=== PATIENT | male | born 1955 | race Caucasian/White ===

== ENCOUNTER 2018-02-09 08:55 | Inpatient (IN) | payer BC, MEDICAID, OTHER ==
[2018-02-09] VITALS (12 sets, daily range): BP systolic 97–134; BP diastolic 60–78
[~2018-02-09] VITALS: Ht 188 cm; Wt 104.4 kg
[2018-02-09] MEDS ORDERED: methylPREDNISolone sod succ 1000mg vial ONE (09:00)
[2018-02-09] MEDS ORDERED: aminocaproic acid 250 MG/1 ML inj. ONE (09:00)
[2018-02-09] MEDS ORDERED: magnesium sulf 1 GM/2 ML ONE (09:00)
[2018-02-09] MEDS ORDERED: phenylephrine 10mg/ml inj. ONE (09:00)
[2018-02-09] MEDS ORDERED: albumin (human) 25% 100 ML IV solution IV ONE (09:00)
[2018-02-09] MEDS ORDERED: heparin 1,000 units/ml 10ml inj ONE (09:00)
[2018-02-09] MEDS ORDERED: potassium Cl 2 mEq/ml inj IV ONE (09:00)
[2018-02-09] MEDS ORDERED: heparin 10,000 units/1 ML INJ ONE (09:00)
[2018-02-09] MEDS ORDERED: sodium bicarbonate (8.4%) 1 mEq/ml syringe ONE (09:00)
[2018-02-09] MEDS ORDERED: calcium chloride 100 MG/1 ML inj IV ONE (09:00)
[2018-02-09] MEDS ORDERED: ceFAZolin 1GM/D5W- ADD-VANTAGE 50 ML IV STA (10:12)
[2018-02-09] MEDS ORDERED: vancomycin/NS 1 GM ADD-VANTAGE 250 ML IV STA (10:12)
[2018-02-09 10:15] LABS: BASOPHILS % (AUTO) 0.3 % (0-1); EOSINOPHILS # (AUTO) 0.2 X10'3 (0-0.9); EOSINOPHILS % (AUTO) 1.2 % (0-6); HEMATOCRIT 44.7 % (42.0-52.0); HEMOGLOBIN 15.2 g/dl (14.0-17.9); LYMPHOCYTES # (AUTO) 0.8 X10'3 (1.1-4.8); LYMPHOCYTES % (AUTO) 5.5 % (21-51); MEAN CORPUSCULAR HEMOGLOBIN 32.6 PG (27.0-31.0); MEAN CORPUSCULAR VOLUME 95.8 FL (78-98); MEAN PLATELET VOLUME 9.3 FL (7.4-10.4); MONOCYTES # (AUTO) 0.9 X10'3 (0-0.9); MONOCYTES % (AUTO) 6.2 % (2-12); NEUTROPHILS # (AUTO) 12.1 X10'3 (1.8-7.7); NEUTROPHILS % (AUTO) 86.8 % (42-75); PLATELET COUNT 255 X10'3 (140-440); RED BLOOD COUNT 4.66 X10'6 (4.70-6.10); RED CELL DISTRIBUTION WIDTH 13.3 % (11.5-14.5)
[2018-02-09] MEDS ORDERED: ringers solution, lacted 1,000 ML IV ONE (10:27)
[2018-02-09 10:30] LABS: ALANINE AMINOTRANSFERASE 89 U/L (12-78); ALBUMIN 3.5 G/DL (3.4-5.0); ALBUMIN/GLOBULIN RATIO 1.2 (1.1-1.5); ALKALINE PHOSPHATASE 83 IU/L (46-116); ANION GAP 11 (8-16); ASPARTATE AMINO TRANSFERASE 61 U/L (10-37); BILIRUBIN,TOTAL 0.8 MG/DL (0.1-1.0); BLOOD UREA NITROGEN 17 MG/DL (7-18); BUN/CREATININE RATIO 10.6 (5.4-32.0); CALCIUM 8.1 MG/DL (8.5-10.1); CHLORIDE 109 MMOL/L (99-107); GLUCOSE 125 MG/DL (70-104); SODIUM 141 MMOL/L (135-145); TOTAL CARBON DIOXIDE 21.1 MMOL/L (24-32); TOTAL PROTEIN 6.4 G/DL (6.4-8.2); eGFR 44 ML/MIN
[2018-02-09] MEDS ORDERED: LORazepam 2 mg/ml vial IM ONE (10:30)
[2018-02-09] MEDS ORDERED: famotidine/PF 10 mg/ml inj IV ONE (10:30)
[2018-02-09] MEDS ORDERED: NORepinephrine bitartrate 8 MG in NS 250 ML BAG (32 mcg/ml) IV ONE (10:32)
[2018-02-09] MEDS ORDERED: niCARDipine in NS 40mg/200ml (0.2mg/ml) IVPB IV ONE (10:32)
[2018-02-09] MEDS ORDERED: rocuronium 10mg/ml inj IV ONE ×2 (10:32→10:42)
[2018-02-09] MEDS ORDERED: protamine sulf. 10mg/ml inj. IV ONE (10:32)
[2018-02-09] MEDS ORDERED: isoflurane 100ml inhalation liquid IH ONE (10:32)
[2018-02-09] MEDS ORDERED: INSULIN R 100 UNIT in NS 100ML (1 UNIT/1 ML) BAG IV ONE (10:32)
[2018-02-09 10:33] LABS: POTASSIUM 5.1 MMOL/L (3.5-5.1)
[2018-02-09] MEDS ORDERED: SUFENTANIL CITRATE 50 MCG/ML 2ml ampule IV ONE (10:38)
[2018-02-09] MEDS ORDERED: LORazepam 2 mg/ml vial ONE (10:41)
[2018-02-09] MEDS ORDERED: propofol inj 20 ML IV ONE ×2 (10:42→12:05)
[2018-02-09] MEDS: insulin regular, human 100 UNIT in normal saline 100ml IV soln 99 ML IV SCH ×4 (10:50→21:20)
[2018-02-09] MEDS ORDERED: pancuronium br 1mg/ml inj IV ONE (11:54)
[2018-02-09 11:56] LABS: ABG BASE EXCESS -9.8 mmol/L (-2.0-3.0); ABG HCO3 15.9 mmol/L (22.0-26.0); ABG OXYGEN SATURATION 93.5 % (95-98); ABG PCO2 34.5 mmHg (35.0-45.0); ABG PH 7.281 (7.350-7.450); ABG PO2 69.5 mmHg (60.0-100.0); CL (ABG) 116 mmol/L (99-107); FCOHb 0.8 % (0.5-1.5); FMetHb 0.2 % (0.3-1.12); FO2Hb 92.6 % (94-100); GLUCOSE (ABG) 124 mg/dl (70-105); IONIZED CA (ABG) 1.14 mmol/L (1.03-1.32); K (ABG) 4.8 mmol/L (3.3-5.1); NA (ABG) 136 mmol/L (135-145); TOTAL HEMOGLOBIN 14.2 G/dl (14.0-18.0)
[2018-02-09] MEDS ORDERED: sodium bicarbonate 1 MEQ/1 ml inj ONE ×2 (11:59)
[2018-02-09 12:21] LABS: ABG BASE EXCESS -5.2 mmol/L (-2.0-3.0); ABG HCO3 19.8 mmol/L (22.0-26.0); ABG PCO2 36.9 mmHg (35.0-45.0); ABG PH 7.347 (7.350-7.450); ABG PO2 204.5 mmHg (60.0-100.0); CL (ABG) 114 mmol/L (99-107); FCOHb 0.4 % (0.5-1.5); FMetHb 0.3 % (0.3-1.12); FO2Hb 98.3 % (94-100); GLUCOSE (ABG) 132 mg/dl (70-105); IONIZED CA (ABG) 1.06 mmol/L (1.03-1.32); K (ABG) 5.5 mmol/L (3.3-5.1); NA (ABG) 135 mmol/L (135-145); TOTAL HEMOGLOBIN 13.4 G/dl (14.0-18.0)
[2018-02-09 12:25] LABS: ACT @ 1.70 U 256 SEC (193-297); ACT @ 2.84 U 371 SEC (260-420); BASELINE ACT 134 SEC (101-148)
[2018-02-09 13:06] LABS: ABG BASE EXCESS -5.2 mmol/L (-2.0-3.0); ABG HCO3 19.7 mmol/L (22.0-26.0); ABG OXYGEN SATURATION 98.5 % (95-98); ABG PCO2 35.6 mmHg (35.0-45.0); CL (ABG) 112 mmol/L (99-107); FCOHb 0.3 % (0.5-1.5); FMetHb 0.2 % (0.3-1.12); GLUCOSE (ABG) 119 mg/dl (70-105); IONIZED CA (ABG) 1.03 mmol/L (1.03-1.32); NA (ABG) 135 mmol/L (135-145); TOTAL HEMOGLOBIN 10.2 G/dl (14.0-18.0)
[2018-02-09 13:21] LABS: ABG BASE EXCESS VENOUS -2.3 mmol/L; ABG HCO3 VENOUS 23.4 mmol/L; ABG PCO2 VENOUS 44.1 mmHg; ABG PO2 VENOUS 50.3 mmHg; CL (ABG) 113 mmol/L (99-107); FCOHb VENOUS 0.3 %; FHHb VENOUS 15.4 %; FMetHb VENOUS 0.2 %; FO2Hb VENOUS 84.1 %; GLUCOSE (ABG) 131 mg/dl (70-105); IONIZED CA (ABG) 1.02 mmol/L (1.03-1.32); NA (ABG) 137 mmol/L (135-145); TOTAL HEMOGLOBIN 10.5 G/dl (14.0-18.0)
[2018-02-09 13:51] LABS: ABG BASE EXCESS -4.7 mmol/L (-2.0-3.0); ABG OXYGEN SATURATION 98.8 % (95-98); ABG PCO2 35.5 mmHg (35.0-45.0); ABG PH 7.368 (7.350-7.450); ABG PO2 267.6 mmHg (60.0-100.0); CL (ABG) 115 mmol/L (99-107); FCOHb 0.3 % (0.5-1.5); FMetHb 0.2 % (0.3-1.12); FO2Hb 98.3 % (94-100); GLUCOSE (ABG) 133 mg/dl (70-105); IONIZED CA (ABG) 1.03 mmol/L (1.03-1.32); K (ABG) 5.2 mmol/L (3.3-5.1); NA (ABG) 138 mmol/L (135-145); TOTAL HEMOGLOBIN 10.9 G/dl (14.0-18.0)
[2018-02-09 14:11] LABS: ABG BASE EXCESS -2.2 mmol/L (-2.0-3.0); ABG HCO3 22.7 mmol/L (22.0-26.0); ABG OXYGEN SATURATION 98.7 % (95-98); ABG PCO2 39.3 mmHg (35.0-45.0); ABG PH 7.379 (7.350-7.450); ABG PO2 306.4 mmHg (60.0-100.0); CL (ABG) 113 mmol/L (99-107); FCOHb 0.3 % (0.5-1.5); FMetHb 0.2 % (0.3-1.12); FO2Hb 98.2 % (94-100); GLUCOSE (ABG) 134 mg/dl (70-105); IONIZED CA (ABG) 1.34 mmol/L (1.03-1.32); K (ABG) 5.3 mmol/L (3.3-5.1); NA (ABG) 135 mmol/L (135-145); TOTAL HEMOGLOBIN 10.3 G/dl (14.0-18.0)
[2018-02-09 15:05] LABS: ABG BASE EXCESS -4.9 mmol/L (-2.0-3.0); ABG HCO3 20.4 mmol/L (22.0-26.0); ABG OXYGEN SATURATION 95.4 % (95-98); ABG PCO2 38.5 mmHg (35.0-45.0); ABG PH 7.342 (7.350-7.450); ABG PO2 82.4 mmHg (60.0-100.0); CL (ABG) 116 mmol/L (99-107); FCOHb 0.3 % (0.5-1.5); FMetHb 0.3 % (0.3-1.12); FO2Hb 94.8 % (94-100); GLUCOSE (ABG) 125 mg/dl (70-105); IONIZED CA (ABG) 1.16 mmol/L (1.03-1.32); K (ABG) 4.4 mmol/L (3.3-5.1); NA (ABG) 140 mmol/L (135-145); TOTAL HEMOGLOBIN 11.9 G/dl (14.0-18.0)
[2018-02-09] MEDS ORDERED: HYDROcodone/acetaminophen 10/325mg tab PO PRN (15:25)
[2018-02-09] MEDS ORDERED: normal saline 250ml IV soln 250 ML IV PRN (15:25)
[2018-02-09] MEDS ORDERED: magnesium hydroxide 30ml (MOM) UD suspension PO PRN (15:25)
[2018-02-09] MEDS ORDERED: nitroGLYCERIN-Tridil 50MG/D5W 250 ML IV PRN (15:25)
[2018-02-09] MEDS ORDERED: metoclopramide 5 mg/ml inj IV PRN (15:25)
[2018-02-09] MEDS: insulin regular, human inj. 100 UNITS in normal saline 100ml IV soln 100 ML IV SCH ×2 (15:25)
[2018-02-09] MEDS ORDERED: sodium phosphate inj. 30 MMOL in dextrose 5%-water 250 ML IV PRN (15:25)
[2018-02-09] MEDS ORDERED: pantoprazole 40 MG vial IV ONE (15:25)
[2018-02-09] MEDS ORDERED: DOPamine 400mg/D5W 250ml 250 ML IV PRN (15:25)
[2018-02-09] MEDS ORDERED: potassium Cl 20mEq/100mL bag 100 ML IV PRN (15:25)
[2018-02-09] MEDS ORDERED: morphine 4 MG/ML inj SYRINge IV PRN (15:25)
[2018-02-09] MEDS ORDERED: dextrose 50%-water 50ml dispensing syringe IV PRN (15:25)
[2018-02-09] MEDS ORDERED: niCARDipine-NS 40mg/200ml IVPB 200 ML IV PRN (15:25)
[2018-02-09] MEDS ORDERED: magnesium 4gm in 100ml NS 100 ML IV PRN (15:25)
[2018-02-09] MEDS ORDERED: Neutra Phos packet PO PRN (15:25)
[2018-02-09] MEDS ORDERED: acetaminophen 325mg tablet PO PRN (15:25)
[2018-02-09] MEDS ORDERED: sodium phosphate inj. 15 MMOL in dextrose 5%-water 150 ML IV PRN (15:25)
[2018-02-09 15:56] LABS: ABG HCO3 19.3 mmol/L (22.0-26.0); ABG OXYGEN SATURATION 89.8 % (95-98); ABG PCO2 (T) 39.3 mmHg (35.0-48.0); ABG PH (T) 7.302 (7.350-7.450); ABG PO2 (T) 56.4 mmHg (83-108); FCOHb 0.2 % (0.5-1.5); FMetHb 0.3 % (0.3-1.12); FO2Hb 89.4 % (94-100); MINUTE VOLUME 10 L/min; PATIENT TEMPERATURE 35.7; PEEP 5 cm H2O; RESPIRATORY RATE 12 b/min; RESPIRATORY RATE (OBSERVED) 12 b/min; TIDAL VOLUME 700 mL; TOTAL HEMOGLOBIN 14.8 G/dl (14.0-18.0)
[2018-02-09 16:04] LABS: BASOPHILS % (AUTO) 0.1 % (0-1); EOSINOPHILS % (AUTO) 0.1 % (0-6); HEMATOCRIT 41.6 % (42.0-52.0); HEMOGLOBIN 14.2 g/dl (14.0-17.9); LYMPHOCYTES # (AUTO) 0.8 X10'3 (1.1-4.8); LYMPHOCYTES % (AUTO) 3.7 % (21-51); MEAN CORPUSCULAR HEMOGLOBIN 32.7 PG (27.0-31.0); MEAN CORPUSCULAR HGB CONC 34.1 % (33.0-36.5); MEAN CORPUSCULAR VOLUME 95.9 FL (78-98); MEAN PLATELET VOLUME 8.8 FL (7.4-10.4); MONOCYTES # (AUTO) 1.2 X10'3 (0-0.9); MONOCYTES % (AUTO) 5.6 % (2-12); NEUTROPHILS # (AUTO) 19.7 X10'3 (1.8-7.7); NEUTROPHILS % (AUTO) 90.5 % (42-75); PLATELET COUNT 171 X10'3 (140-440); RED BLOOD COUNT 4.33 X10'6 (4.70-6.10); RED CELL DISTRIBUTION WIDTH 13.2 % (11.5-14.5); WHITE BLOOD COUNT 21.8 X10'3 (4.5-11.0)
[2018-02-09 16:06] LABS: ACTIVATED CLOTTING TIME 130 SEC (101-148)
[2018-02-09 16:20] LABS: ALANINE AMINOTRANSFERASE 59 U/L (12-78); ALBUMIN 2.7 G/DL (3.4-5.0); ALBUMIN/GLOBULIN RATIO 1.4 (1.1-1.5); ALKALINE PHOSPHATASE 50 IU/L (46-116); ANION GAP 13 (8-16); BILIRUBIN,TOTAL 0.7 MG/DL (0.1-1.0); BLOOD UREA NITROGEN 18 MG/DL (7-18); BUN/CREATININE RATIO 11.5 (5.4-32.0); CALCIUM 7.7 MG/DL (8.5-10.1); CHLORIDE 116 MMOL/L (99-107); CREATININE 1.56 MG/DL (0.60-1.10); GLUCOSE 124 MG/DL (70-104); MAGNESIUM 3.4 MG/DL (1.5-2.4); SODIUM 150 MMOL/L (135-145); TOTAL CARBON DIOXIDE 21.4 MMOL/L (24-32); TOTAL PROTEIN 4.7 G/DL (6.4-8.2); eGFR 45 ML/MIN
[2018-02-09 16:22] LABS: ASPARTATE AMINO TRANSFERASE 63 U/L (10-37); PHOSPHORUS 2.7 MG/DL (2.3-4.5)
[2018-02-09 16:44] LABS: INR 1.2 INR; PARTIAL THROMBOPLASTIN TIME 29 SECONDS (22-32); PROTHROMBIN TIME 12.2 SECONDS (9.0-12.0)
[2018-02-09] MEDS: cefazolin/dext.iso 2gm/50ml 50 ML IV SCH ×2 (17:06→23:28)
[2018-02-09] MEDS: sodium chloride 0.45% 1,000 ML IV SCH (17:08)
[2018-02-09] MEDS: morphine 4 MG/ML inj SYRINge IV PRN ×4 (17:35→22:35)
[2018-02-09] MEDS: insulin Lispro (HumaLOG) vial - multi-dose SQ SCH (18:00)
[2018-02-09] MEDS ORDERED: NORepinephrine 8mg/ 250ml NS 250 ML IV ONE (18:52)
[2018-02-09] MEDS ORDERED: propofol 1000mg/100ml bottle 100 ML IV ONE (18:53)
[2018-02-09] MEDS: ondansetron/PF 4mg/2ml inj IV PRN (18:55)
[2018-02-09] MEDS ORDERED: propofol 1000mg/100ml bottle 100 ML IV PRN (19:03)
[2018-02-09] MEDS ORDERED: sodium bicarbonate (8.4%) 1 mEq/ml syringe IV ONE (19:05)
[2018-02-09] MEDS ORDERED: NORepinephrine 8mg/ 250ml NS 250 ML IV SCH (19:05)
[2018-02-09 19:11] LABS: ABG BASE EXCESS -11.8 mmol/L (-2.0-3.0); ABG HCO3 12.9 mmol/L (22.0-26.0); ABG OXYGEN SATURATION 91.6 % (95-98); ABG PH (T) 7.297 (7.350-7.450); ABG PO2 (T) 66.1 mmHg (83-108); FMetHb 0.3 % (0.3-1.12); FO2Hb 91.3 % (94-100); MINUTE VOLUME 23 L/min; PEEP 12 cm H2O; RESPIRATORY RATE 16 b/min; RESPIRATORY RATE (OBSERVED) 23 b/min; TIDAL VOLUME 700 mL; TOTAL HEMOGLOBIN 14.5 G/dl (14.0-18.0)
[2018-02-09] MEDS: docusate sod 100mg capsule PO SCH (20:00)
[2018-02-09 20:06] LABS: BASOPHILS % (AUTO) 0 % (0-1); EOSINOPHILS # (AUTO) 0.4 X10'3 (0-0.9); EOSINOPHILS % (AUTO) 1.9 % (0-6); HEMATOCRIT 42.3 % (42.0-52.0); HEMOGLOBIN 14.2 g/dl (14.0-17.9); LYMPHOCYTES # (AUTO) 0.5 X10'3 (1.1-4.8); LYMPHOCYTES % (AUTO) 2.5 % (21-51); MEAN CORPUSCULAR HEMOGLOBIN 32.2 PG (27.0-31.0); MEAN CORPUSCULAR HGB CONC 33.6 % (33.0-36.5); MEAN CORPUSCULAR VOLUME 95.9 FL (78-98); MEAN PLATELET VOLUME 8.9 FL (7.4-10.4); MONOCYTES # (AUTO) 0.7 X10'3 (0-0.9); MONOCYTES % (AUTO) 3.2 % (2-12); NEUTROPHILS # (AUTO) 19.8 X10'3 (1.8-7.7); NEUTROPHILS % (AUTO) 92.4 % (42-75); PLATELET COUNT 235 X10'3 (140-440); RED BLOOD COUNT 4.41 X10'6 (4.70-6.10); RED CELL DISTRIBUTION WIDTH 13.3 % (11.5-14.5); WHITE BLOOD COUNT 21.4 X10'3 (4.5-11.0)
[2018-02-09] MEDS: NORepinephrine 8mg/ 250ml NS 250 ML IV SCH (20:09)
[2018-02-09] MEDS: propofol 1000mg/100ml bottle 100 ML IV PRN (20:09)
[2018-02-09] MEDS: vancomycin/NS 1 GM ADD-VANTAGE 250 ML IV SCH (20:17)
[2018-02-09] MEDS: mupirocin 2% nasal ointment 1gm UD NS SCH (20:17)
[2018-02-09 20:20] LABS: ALBUMIN/GLOBULIN RATIO 1.4 (1.1-1.5); ALKALINE PHOSPHATASE 59 IU/L (46-116); ANION GAP 15 (8-16); ASPARTATE AMINO TRANSFERASE 68 U/L (10-37); BILIRUBIN,TOTAL 0.8 MG/DL (0.1-1.0); BLOOD UREA NITROGEN 19 MG/DL (7-18); BUN/CREATININE RATIO 9.8 (5.4-32.0); CALCIUM 7.9 MG/DL (8.5-10.1); CHLORIDE 115 MMOL/L (99-107); CREATININE 1.94 MG/DL (0.60-1.10); GLUCOSE 176 MG/DL (70-104); MAGNESIUM 2.6 MG/DL (1.5-2.4); PHOSPHORUS 3.3 MG/DL (2.3-4.5); POTASSIUM 3.7 MMOL/L (3.5-5.1); SODIUM 149 MMOL/L (135-145); TOTAL PROTEIN 5.1 G/DL (6.4-8.2); eGFR 35 ML/MIN
[2018-02-09 20:23] LABS: INR 1.1 INR; PARTIAL THROMBOPLASTIN TIME 32 SECONDS (22-32); PROTHROMBIN TIME 11.5 SECONDS (9.0-12.0)
[2018-02-09 20:30] LABS: ALANINE AMINOTRANSFERASE 53 U/L (12-78)
[2018-02-09] MEDS: potassium Cl 20mEq/100mL bag 100 ML IV PRN (20:52)
[2018-02-09] MEDS: albumin (Human) 5% 250ml 250 ML IV PRN (23:30)
[2018-02-10] VITALS (24 sets, daily range): BP systolic 94–141; BP diastolic 60–89
[2018-02-10] MEDS: propofol 1000mg/100ml bottle 100 ML IV PRN ×2 (00:42→08:33)
[2018-02-10 03:25] LABS: BASOPHILS % (AUTO) 0 % (0-1); EOSINOPHILS % (AUTO) 0 % (0-6); HEMOGLOBIN 13.4 g/dl (14.0-17.9); LYMPHOCYTES # (AUTO) 0.6 X10'3 (1.1-4.8); LYMPHOCYTES % (AUTO) 3.1 % (21-51); MEAN CORPUSCULAR HEMOGLOBIN 32.4 PG (27.0-31.0); MEAN CORPUSCULAR HGB CONC 33.5 % (33.0-36.5); MEAN CORPUSCULAR VOLUME 96.7 FL (78-98); MEAN PLATELET VOLUME 9.1 FL (7.4-10.4); MONOCYTES % (AUTO) 4.8 % (2-12); NEUTROPHILS # (AUTO) 18.7 X10'3 (1.8-7.7); NEUTROPHILS % (AUTO) 92.1 % (42-75); PLATELET COUNT 191 X10'3 (140-440); RED BLOOD COUNT 4.13 X10'6 (4.70-6.10); RED CELL DISTRIBUTION WIDTH 13.4 % (11.5-14.5); WHITE BLOOD COUNT 20.4 X10'3 (4.5-11.0)
[2018-02-10] MEDS: morphine 4 MG/ML inj SYRINge IV PRN ×3 (03:33→22:24)
[2018-02-10 03:37] LABS: INR 1.1 INR; PARTIAL THROMBOPLASTIN TIME 27 SECONDS (22-32); PROTHROMBIN TIME 11.2 SECONDS (9.0-12.0)
[2018-02-10 03:40] LABS: ALANINE AMINOTRANSFERASE 50 U/L (12-78); ALBUMIN 3.1 G/DL (3.4-5.0); ALBUMIN/GLOBULIN RATIO 1.4 (1.1-1.5); ALKALINE PHOSPHATASE 54 IU/L (46-116); ANION GAP 11 (8-16); ASPARTATE AMINO TRANSFERASE 50 U/L (10-37); BILIRUBIN,TOTAL 0.5 MG/DL (0.1-1.0); BLOOD UREA NITROGEN 19 MG/DL (7-18); BUN/CREATININE RATIO 12.3 (5.4-32.0); CALCIUM 8.2 MG/DL (8.5-10.1); CHLORIDE 116 MMOL/L (99-107); CREATININE 1.54 MG/DL (0.60-1.10); GLUCOSE 158 MG/DL (70-104); MAGNESIUM 2.5 MG/DL (1.5-2.4); PHOSPHORUS 2.1 MG/DL (2.3-4.5); POTASSIUM 3.7 MMOL/L (3.5-5.1); SODIUM 148 MMOL/L (135-145); TOTAL CARBON DIOXIDE 20.9 MMOL/L (24-32); TOTAL PROTEIN 5.3 G/DL (6.4-8.2); eGFR 46 ML/MIN
[2018-02-10 03:46] LABS: ABG BASE EXCESS -4.3 mmol/L (-2.0-3.0); ABG OXYGEN SATURATION 95.4 % (95-98); ABG PCO2 (T) 30.1 mmHg (35.0-48.0); ABG PH (T) 7.418 (7.350-7.450); ABG PO2 (T) 71.6 mmHg (83-108); FCOHb 0.1 % (0.5-1.5); FMetHb 0.2 % (0.3-1.12); FO2Hb 95.1 % (94-100); MINUTE VOLUME 12 L/min; PATIENT TEMPERATURE 36.6; PEEP 12 cm H2O; RESPIRATORY RATE 16 b/min; RESPIRATORY RATE (OBSERVED) 16 b/min; TIDAL VOLUME 700 mL; TOTAL HEMOGLOBIN 14.1 G/dl (14.0-18.0)
[2018-02-10] MEDS: potassium Cl 20mEq/100mL bag 100 ML IV PRN ×2 (03:54→09:02)
[2018-02-10 05:22] LABS: K (ABG) 6.2 mmol/L (3.3-5.1)
[2018-02-10] MEDS ORDERED: LORazepam 2 mg/ml vial IV ONE (06:00)
[2018-02-10] MEDS: metoprolol tartrate 12.5mg (1/2 tablet) PO SCH ×2 (07:21→19:50)
[2018-02-10] MEDS: atorvastatin 10mg tablet PO SCH (07:41)
[2018-02-10] MEDS: cefazolin/dext.iso 2gm/50ml 50 ML IV SCH ×2 (07:41→16:21)
[2018-02-10] MEDS: aspirin 325mg tablet, delayed-release (Ecotrin) PO SCH (07:42)
[2018-02-10] MEDS: mupirocin 2% nasal ointment 1gm UD NS SCH ×2 (07:42→20:59)
[2018-02-10] MEDS: vancomycin/NS 1 GM ADD-VANTAGE 250 ML IV SCH ×2 (07:50→19:47)
[2018-02-10] MEDS: insulin Lispro (HumaLOG) vial - multi-dose SQ SCH ×3 (09:00→18:00)
[2018-02-10] MEDS: albumin (Human) 5% 250ml 250 ML IV PRN ×3 (09:24→19:49)
[2018-02-10] MEDS: dexmedetomidin/NS 400mcg/100ml 100 ML IV SCH ×2 (09:49→18:33)
[2018-02-10] MEDS: docusate sod 100mg capsule PO SCH ×2 (09:52→19:50)
[2018-02-10 13:10] LABS: ABG BASE EXCESS -2.9 mmol/L (-2.0-3.0); ABG HCO3 19.6 mmol/L (22.0-26.0); ABG OXYGEN SATURATION 96.4 % (95-98); ABG PCO2 (T) 28.3 mmHg (35.0-48.0); ABG PH (T) 7.459 (7.350-7.450); ABG PO2 (T) 82.3 mmHg (83-108); FCOHb 0.3 % (0.5-1.5); FO2Hb 96.1 % (94-100); MINUTE VOLUME 12 L/min; PEEP 15 cm H2O; RESPIRATORY RATE 16 b/min; RESPIRATORY RATE (OBSERVED) 16 b/min; TIDAL VOLUME 700 mL; TOTAL HEMOGLOBIN 13.4 G/dl (14.0-18.0)
[2018-02-10] MEDS: insulin regular, human inj. 100 UNITS in normal saline 100ml IV soln 100 ML IV SCH ×2 (15:25)
[2018-02-10 21:01] LABS: ABG BASE EXCESS -2.6 mmol/L (-2.0-3.0); ABG HCO3 20.5 mmol/L (22.0-26.0); ABG OXYGEN SATURATION 97.5 % (95-98); ABG PCO2 (T) 28.9 mmHg (35.0-48.0); ABG PH (T) 7.462 (7.350-7.450); ABG PO2 (T) 93.6 mmHg (83-108); FCOHb 0.3 % (0.5-1.5); FMetHb 0.3 % (0.3-1.12); FO2Hb 96.9 % (94-100); MINUTE VOLUME 11 L/min; PATIENT TEMPERATURE 35.5; PEEP 12 cm H2O; RESPIRATORY RATE 14 b/min; RESPIRATORY RATE (OBSERVED) 14 b/min; TIDAL VOLUME 700 mL; TOTAL HEMOGLOBIN 13.1 G/dl (14.0-18.0)
[2018-02-11] VITALS (21 sets, daily range): BP systolic 101–147; BP diastolic 54–80
[2018-02-11] MEDS: cefazolin/dext.iso 2gm/50ml 50 ML IV SCH (00:14)
[2018-02-11] MEDS: propofol 1000mg/100ml bottle 100 ML IV PRN (00:22)
[2018-02-11] MEDS: dexmedetomidin/NS 400mcg/100ml 100 ML IV SCH (02:38)
[2018-02-11 02:57] LABS: BASOPHILS % (AUTO) 0 % (0-1); EOSINOPHILS % (AUTO) 0 % (0-6); HEMATOCRIT 34.5 % (42.0-52.0); HEMOGLOBIN 11.5 g/dl (14.0-17.9); LYMPHOCYTES # (AUTO) 0.9 X10'3 (1.1-4.8); LYMPHOCYTES % (AUTO) 5.7 % (21-51); MEAN CORPUSCULAR HEMOGLOBIN 32.4 PG (27.0-31.0); MEAN CORPUSCULAR HGB CONC 33.2 % (33.0-36.5); MEAN CORPUSCULAR VOLUME 97.5 FL (78-98); MEAN PLATELET VOLUME 9.9 FL (7.4-10.4); MONOCYTES # (AUTO) 0.9 X10'3 (0-0.9); MONOCYTES % (AUTO) 5.7 % (2-12); NEUTROPHILS # (AUTO) 14.6 X10'3 (1.8-7.7); NEUTROPHILS % (AUTO) 88.6 % (42-75); PLATELET COUNT 138 X10'3 (140-440); RED BLOOD COUNT 3.54 X10'6 (4.70-6.10); RED CELL DISTRIBUTION WIDTH 13.7 % (11.5-14.5); WHITE BLOOD COUNT 16.5 X10'3 (4.5-11.0)
[2018-02-11 03:31] LABS: ALBUMIN 2.9 G/DL (3.4-5.0); ANION GAP 9 (8-16); BLOOD UREA NITROGEN 22 MG/DL (7-18); BUN/CREATININE RATIO 20.6 (5.4-32.0); CALCIUM 8.2 MG/DL (8.5-10.1); CHLORIDE 115 MMOL/L (99-107); CREATININE 1.07 MG/DL (0.60-1.10); GLUCOSE 134 MG/DL (70-104); MAGNESIUM 2.2 MG/DL (1.5-2.4); PHOSPHORUS 3.9 MG/DL (2.3-4.5); POTASSIUM 4.4 MMOL/L (3.5-5.1); SODIUM 147 MMOL/L (135-145); TOTAL CARBON DIOXIDE 23.1 MMOL/L (24-32); eGFR 70 ML/MIN
[2018-02-11 03:56] LABS: ABG BASE EXCESS -2.1 mmol/L (-2.0-3.0); ABG HCO3 22.1 mmol/L (22.0-26.0); ABG OXYGEN SATURATION 93.7 % (95-98); ABG PCO2 (T) 34.8 mmHg (35.0-48.0); ABG PH (T) 7.418 (7.350-7.450); ABG PO2 (T) 66.1 mmHg (83-108); FCOHb 0.3 % (0.5-1.5); FMetHb 0.3 % (0.3-1.12); FO2Hb 93.1 % (94-100); MINUTE VOLUME 10 L/min; PATIENT TEMPERATURE 36.4; PEEP 5 cm H2O; RESPIRATORY RATE 12 b/min; RESPIRATORY RATE (OBSERVED) 12 b/min; TIDAL VOLUME 700 mL; TOTAL HEMOGLOBIN 12.5 G/dl (14.0-18.0)
[2018-02-11] MEDS: potassium Cl 20mEq/100mL bag 100 ML IV PRN ×3 (04:07→20:24)
[2018-02-11] MEDS: magnesium 2GM in 50ml NS 50 ML IV PRN (05:41)
[2018-02-11] MEDS ORDERED: furosemide 40mg/4ml inj IV ONE (07:00)
[2018-02-11] MEDS: docusate sod 100mg capsule PO SCH ×2 (08:00→19:54)
[2018-02-11] MEDS: aspirin 325mg tablet, delayed-release (Ecotrin) PO SCH (08:28)
[2018-02-11] MEDS: metoprolol tartrate 12.5mg (1/2 tablet) PO SCH ×2 (08:28→21:20)
[2018-02-11] MEDS: pantoprazole 40mg Tablet.DR PO SCH (08:28)
[2018-02-11] MEDS: atorvastatin 10mg tablet PO SCH (08:28)
[2018-02-11] MEDS: mupirocin 2% nasal ointment 1gm UD NS SCH (08:29)
[2018-02-11] MEDS: morphine 4 MG/ML inj SYRINge IV PRN ×6 (08:56→23:09)
[2018-02-11] MEDS: insulin Lispro (HumaLOG) vial - multi-dose SQ SCH ×3 (09:00→18:00)
[2018-02-11 12:55] LABS: ABG BASE EXCESS 1.5 mmol/L (-2.0-3.0); ABG HCO3 20.7 mmol/L (22.0-26.0); ABG OXYGEN SATURATION 92.9 % (95-98); ABG PCO2 (T) 20.4 mmHg (35.0-48.0); ABG PH (T) 7.623 (7.350-7.450); ABG PO2 (T) 52.7 mmHg (83-108); FMetHb 0.1 % (0.3-1.12); FO2Hb 92.8 % (94-100); PATIENT TEMPERATURE 36.8; TOTAL HEMOGLOBIN 13.4 G/dl (14.0-18.0)
[2018-02-11 14:03] LABS: MAGNESIUM 2.4 MG/DL (1.5-2.4); POTASSIUM 3.9 MMOL/L (3.5-5.1)
[2018-02-11] MEDS: insulin regular, human inj. 100 UNITS in normal saline 100ml IV soln 100 ML IV SCH ×2 (15:25)
[2018-02-11] MEDS: sodium chloride 0.45% 1,000 ML IV SCH (15:25)
[2018-02-11] MEDS: ondansetron/PF 4mg/2ml inj IV PRN (18:59)
[2018-02-12] VITALS (24 sets, daily range): BP systolic 99–144; BP diastolic 61–86
[2018-02-12] MEDS: morphine 4 MG/ML inj SYRINge IV PRN ×5 (01:51→21:36)
[2018-02-12 02:49] LABS: BASOPHILS % (AUTO) 0 % (0-1); EOSINOPHILS # (AUTO) 0.2 X10'3 (0-0.9); EOSINOPHILS % (AUTO) 1.5 % (0-6); HEMATOCRIT 35.5 % (42.0-52.0); LYMPHOCYTES % (AUTO) 6.3 % (21-51); MEAN CORPUSCULAR HEMOGLOBIN 32.4 PG (27.0-31.0); MEAN CORPUSCULAR HGB CONC 33.8 % (33.0-36.5); MEAN PLATELET VOLUME 9.6 FL (7.4-10.4); MONOCYTES # (AUTO) 1.4 X10'3 (0-0.9); MONOCYTES % (AUTO) 8.7 % (2-12); NEUTROPHILS # (AUTO) 13.1 X10'3 (1.8-7.7); NEUTROPHILS % (AUTO) 83.5 % (42-75); PLATELET COUNT 155 X10'3 (140-440); RED CELL DISTRIBUTION WIDTH 13.5 % (11.5-14.5); WHITE BLOOD COUNT 15.7 X10'3 (4.5-11.0)
[2018-02-12 02:54] LABS: ANION GAP 10 (8-16); BLOOD UREA NITROGEN 24 MG/DL (7-18); BUN/CREATININE RATIO 22.2 (5.4-32.0); CALCIUM 8.3 MG/DL (8.5-10.1); CHLORIDE 110 MMOL/L (99-107); CREATININE 1.08 MG/DL (0.60-1.10); GLUCOSE 110 MG/DL (70-104); MAGNESIUM 2.1 MG/DL (1.5-2.4); PHOSPHORUS 3.4 MG/DL (2.3-4.5); POTASSIUM 3.9 MMOL/L (3.5-5.1); SODIUM 143 MMOL/L (135-145); TOTAL CARBON DIOXIDE 23.4 MMOL/L (24-32); eGFR 69 ML/MIN
[2018-02-12] MEDS: potassium Cl 20mEq/100mL bag 100 ML IV PRN ×3 (03:41→23:28)
[2018-02-12] MEDS: magnesium 2GM in 50ml NS 50 ML IV PRN (06:00)
[2018-02-12] MEDS ORDERED: furosemide 40mg/4ml inj IV ONE (06:55)
[2018-02-12] MEDS: atorvastatin 10mg tablet PO SCH (07:56)
[2018-02-12] MEDS: metoprolol tartrate 25mg tablet PO SCH ×2 (07:56→19:42)
[2018-02-12] MEDS: docusate sod 100mg capsule PO SCH ×2 (07:56→19:41)
[2018-02-12] MEDS: pantoprazole 40mg Tablet.DR PO SCH (07:56)
[2018-02-12] MEDS: aspirin 325mg tablet, delayed-release (Ecotrin) PO SCH (07:56)
[2018-02-12] MEDS: insulin Lispro (HumaLOG) vial - multi-dose SQ SCH ×3 (09:00→19:08)
[2018-02-12] MEDS: lactose-reduced food (Ensure Enlive) - 237ml bottle PO SCH ×2 (13:00→18:00)
[2018-02-12] MEDS: insulin regular, human inj. 100 UNITS in normal saline 100ml IV soln 100 ML IV SCH ×2 (15:25)
[2018-02-12] MEDS: NORepinephrine 8mg/ 250ml NS 250 ML IV SCH (19:05)
[2018-02-12] MEDS: dexmedetomidin/NS 400mcg/100ml 100 ML IV SCH (19:08)
[2018-02-12] MEDS: HYDROcodone/acetaminophen 10/325mg tab PO PRN (19:41)
[2018-02-12 22:48] LABS: MAGNESIUM 2.1 MG/DL (1.5-2.4); POTASSIUM 3.7 MMOL/L (3.5-5.1)
[2018-02-13] VITALS (24 sets, daily range): BP systolic 110–149; BP diastolic 73–107
[2018-02-13] MEDS: potassium Cl 20mEq/100mL bag 100 ML IV PRN (00:42)
[2018-02-13] MEDS: magnesium 2GM in 50ml NS 50 ML IV PRN (01:51)
[2018-02-13 05:25] LABS: BASOPHILS % (AUTO) 0.2 % (0-1); EOSINOPHILS # (AUTO) 0.2 X10'3 (0-0.9); EOSINOPHILS % (AUTO) 1.7 % (0-6); HEMATOCRIT 37.1 % (42.0-52.0); HEMOGLOBIN 12.5 g/dl (14.0-17.9); LYMPHOCYTES # (AUTO) 1.1 X10'3 (1.1-4.8); LYMPHOCYTES % (AUTO) 8.4 % (21-51); MEAN CORPUSCULAR HEMOGLOBIN 32.7 PG (27.0-31.0); MEAN CORPUSCULAR HGB CONC 33.7 % (33.0-36.5); MEAN CORPUSCULAR VOLUME 96.9 FL (78-98); MEAN PLATELET VOLUME 9.3 FL (7.4-10.4); MONOCYTES # (AUTO) 1.2 X10'3 (0-0.9); MONOCYTES % (AUTO) 8.5 % (2-12); NEUTROPHILS % (AUTO) 81.2 % (42-75); PLATELET COUNT 202 X10'3 (140-440); RED BLOOD COUNT 3.82 X10'6 (4.70-6.10); RED CELL DISTRIBUTION WIDTH 13.3 % (11.5-14.5); WHITE BLOOD COUNT 13.6 X10'3 (4.5-11.0)
[2018-02-13 05:46] LABS: ANION GAP 10 (8-16); BLOOD UREA NITROGEN 25 MG/DL (7-18); BUN/CREATININE RATIO 23.6 (5.4-32.0); CALCIUM 8.4 MG/DL (8.5-10.1); CHLORIDE 106 MMOL/L (99-107); CREATININE 1.06 MG/DL (0.60-1.10); GLUCOSE 101 MG/DL (70-104); MAGNESIUM 2.4 MG/DL (1.5-2.4); PHOSPHORUS 3.5 MG/DL (2.3-4.5); POTASSIUM 4.5 MMOL/L (3.5-5.1); SODIUM 140 MMOL/L (135-145); TOTAL CARBON DIOXIDE 24.1 MMOL/L (24-32); eGFR 71 ML/MIN
[2018-02-13] MEDS: lactose-reduced food (Ensure Enlive) - 237ml bottle PO SCH ×3 (08:00→18:04)
[2018-02-13] MEDS: aspirin 325mg tablet, delayed-release (Ecotrin) PO SCH (08:04)
[2018-02-13] MEDS: pantoprazole 40mg Tablet.DR PO SCH (08:04)
[2018-02-13] MEDS: metoprolol tartrate 25mg tablet PO SCH ×2 (08:04→20:20)
[2018-02-13] MEDS: atorvastatin 10mg tablet PO SCH (08:04)
[2018-02-13] MEDS: docusate sod 100mg capsule PO SCH ×2 (08:05→20:20)
[2018-02-13] MEDS: insulin Lispro (HumaLOG) vial - multi-dose SQ SCH ×2 (08:40→10:58)
[2018-02-13] MEDS: insulin regular, human inj. 100 UNITS in normal saline 100ml IV soln 100 ML IV SCH ×2 (08:40)
[2018-02-13] MEDS: HYDROcodone/acetaminophen 10/325mg tab PO PRN ×3 (10:16→20:21)
[2018-02-13] MEDS: sodium chloride 0.45% 1,000 ML IV SCH (10:59)
[2018-02-14] VITALS (24 sets, daily range): BP systolic 83–150; BP diastolic 60–104
[2018-02-14] MEDS: HYDROcodone/acetaminophen 10/325mg tab PO PRN ×2 (05:05→09:58)
[2018-02-14 06:09] LABS: BASOPHILS % (AUTO) 0.4 % (0-1); EOSINOPHILS # (AUTO) 0.2 X10'3 (0-0.9); HEMATOCRIT 40.3 % (42.0-52.0); HEMOGLOBIN 13.6 g/dl (14.0-17.9); LYMPHOCYTES # (AUTO) 1.5 X10'3 (1.1-4.8); MEAN CORPUSCULAR HEMOGLOBIN 32.7 PG (27.0-31.0); MEAN CORPUSCULAR HGB CONC 33.8 % (33.0-36.5); MEAN CORPUSCULAR VOLUME 96.7 FL (78-98); MEAN PLATELET VOLUME 9.4 FL (7.4-10.4); MONOCYTES # (AUTO) 1.2 X10'3 (0-0.9); MONOCYTES % (AUTO) 10.2 % (2-12); NEUTROPHILS # (AUTO) 9.2 X10'3 (1.8-7.7); NEUTROPHILS % (AUTO) 75.4 % (42-75); PLATELET COUNT 239 X10'3 (140-440); RED BLOOD COUNT 4.16 X10'6 (4.70-6.10); RED CELL DISTRIBUTION WIDTH 12.6 % (11.5-14.5); WHITE BLOOD COUNT 12.2 X10'3 (4.5-11.0)
[2018-02-14] MEDS: insulin Lispro (HumaLOG) vial - multi-dose SQ SCH (07:02)
[2018-02-14] MEDS: insulin regular, human inj. 100 UNITS in normal saline 100ml IV soln 100 ML IV SCH ×2 (07:04)
[2018-02-14 07:26] LABS: ALBUMIN 2.9 G/DL (3.4-5.0); ANION GAP 13 (8-16); BLOOD UREA NITROGEN 23 MG/DL (7-18); CALCIUM 8.8 MG/DL (8.5-10.1); CHLORIDE 104 MMOL/L (99-107); CREATININE 0.96 MG/DL (0.60-1.10); GLUCOSE 93 MG/DL (70-104); MAGNESIUM 1.7 MG/DL (1.5-2.4); PHOSPHORUS 3.6 MG/DL (2.3-4.5); POTASSIUM 4.1 MMOL/L (3.5-5.1); SODIUM 139 MMOL/L (135-145); TOTAL CARBON DIOXIDE 22.4 MMOL/L (24-32); eGFR 79 ML/MIN
[2018-02-14] MEDS: aspirin 325mg tablet, delayed-release (Ecotrin) PO SCH (07:47)
[2018-02-14] MEDS: magnesium 2GM in 50ml NS 50 ML IV PRN (07:47)
[2018-02-14] MEDS: NORepinephrine 8mg/ 250ml NS 250 ML IV SCH (07:47)
[2018-02-14] MEDS: pantoprazole 40mg Tablet.DR PO SCH (07:47)
[2018-02-14] MEDS: docusate sod 100mg capsule PO SCH ×2 (07:47→20:42)
[2018-02-14] MEDS: metoprolol tartrate 25mg tablet PO SCH ×2 (07:47→20:42)
[2018-02-14] MEDS: atorvastatin 10mg tablet PO SCH (07:47)
[2018-02-14] MEDS: lactose-reduced food (Ensure Enlive) - 237ml bottle PO SCH ×3 (07:58→18:10)
[2018-02-14] MEDS: potassium Cl 20mEq/100mL bag 100 ML IV PRN (08:55)
[2018-02-14] MEDS ORDERED: furosemide 40mg/4ml inj IV ONE (09:45)
[2018-02-14] MEDS ORDERED: albumin (Human) 5% 250ml 250 ML IV ONE (12:40)
[2018-02-14] MEDS ORDERED: metoprolol tartrate 25mg tablet PO SCH (20:00)
[2018-02-15] VITALS (12 sets, daily range): BP systolic 109–126; BP diastolic 64–84
[2018-02-15 06:53] LABS: MAGNESIUM 2.1 MG/DL (1.5-2.4); PHOSPHORUS 3.7 MG/DL (2.3-4.5)
[2018-02-15] MEDS: pantoprazole 40mg Tablet.DR PO SCH (07:22)
[2018-02-15] MEDS ORDERED: aspirin 325mg tablet, delayed-release (Ecotrin) PO SCH (08:00)
[2018-02-15] MEDS: docusate sod 100mg capsule PO SCH (08:54)
[2018-02-15] MEDS: atorvastatin 10mg tablet PO SCH (08:54)
[2018-02-15] MEDS: lactose-reduced food (Ensure Enlive) - 237ml bottle PO SCH (08:55)
[2018-02-15] MEDS: metoprolol tartrate 25mg tablet PO SCH (08:55)
[2018-02-15] MEDS: insulin Lispro (HumaLOG) vial - multi-dose SQ SCH (09:00)
[2018-02-15] MEDS ORDERED: ASPI-41 PO (10:00)
[2018-02-15] MEDS ORDERED: ATOR10TA PO (10:00)
[2018-02-15] MEDS ORDERED: HYDR-3972 PO (10:00)
[2018-02-15] MEDS ORDERED: METO25TA6 PO (10:00)
[2018-02-15] MEDS ORDERED: COL100C PO (10:00)
== END 2018-02-15 14:03 | disposition home health service (06) | DRG 219 ==
LOC: CICU 2S 09:55
PROVIDERS: ADMIT Thoracic Surgery (Cardiothoracic Vascular Surgery); ATTEND Thoracic Surgery (Cardiothoracic Vascular Surgery)
PROC: 5A1221Z Performance of Cardiac Output, Continuous (ICD-10-PCS; 2018-02-09)
PROC: B246ZZ4 Ultrasonography of Right and Left Heart, Transesophageal (ICD-10-PCS; 2018-02-09)
PROC: 5A1945Z Respiratory Ventilation, 24-96 Consecutive Hours (ICD-10-PCS; 2018-02-09)
PROC: 0BH17EZ Insertion of Endotracheal Airway into Trachea, Via Natural or Artificial Opening (ICD-10-PCS; 2018-02-09)
PROC: 02HV33Z Insertion of Infusion Device into Superior Vena Cava, Percutaneous Approach (ICD-10-PCS; 2018-02-09)
PROC: 02RX0JZ Replacement of Thoracic Aorta, Ascending/Arch with Synthetic Substitute, Open Approach (ICD-10-PCS; principal; 2018-02-09 10:32)
DX: I71.1 Thoracic aortic aneurysm, ruptured (principal); N17.0 Acute kidney failure with tubular necrosis; I31.2 Hemopericardium, not elsewhere classified; I31.3 Pericardial effusion (noninflammatory); I20.0 Unstable angina; R55 Syncope and collapse
CPT/HCPCS: 0232T; 93312; 93325; Z7506; Z7508; 36415; 36600; 71045; 80048; 80053; 82330; 82435; 82803; 82947; 82948; 83735; 84100; 84132; 84295; 85018; 85025; 85347; 85384; 85610; 85730; 86885; 86900; 86901; 86920; 93005; 94002; 94003; 94668; 94760; 97116; 97161; 97530; A6257; A6402; A6449; A7048; C1751; C1768; C9113; G0378; J0690; J1644; J1815; J1940; J2060; J2150; J2270; J2370; J2405; J2704; J2720; J2930; J3370; J3475; J3480; J3490; J7030; J7060; J7120; P9045; P9047

== ENCOUNTER 2018-02-27 14:51 | Emergency (ER) | payer BC, OTHER ==
[~2018-02-27] VITALS: Ht 188 cm; Wt 100.0 kg
[~2018-02-27 14:51] MED LIST: ASPI-41 PO; ATOR10TA PO; COL100C PO; HYDR-3972 PO; METO25TA6 PO
[2018-02-27 16:05] LABS: BASOPHILS % (AUTO) 0.4 % (0-1); EOSINOPHILS # (AUTO) 0.2 X10'3 (0-0.9); EOSINOPHILS % (AUTO) 2.4 % (0-6); HEMATOCRIT 38.1 % (42.0-52.0); HEMOGLOBIN 12.9 g/dl (14.0-17.9); LYMPHOCYTES # (AUTO) 1.4 X10'3 (1.1-4.8); LYMPHOCYTES % (AUTO) 15.2 % (21-51); MEAN CORPUSCULAR HEMOGLOBIN 32.6 PG (27.0-31.0); MEAN CORPUSCULAR VOLUME 95.9 FL (78-98); MEAN PLATELET VOLUME 8.6 FL (7.4-10.4); MONOCYTES # (AUTO) 0.6 X10'3 (0-0.9); MONOCYTES % (AUTO) 7.2 % (2-12); NEUTROPHILS # (AUTO) 6.7 X10'3 (1.8-7.7); NEUTROPHILS % (AUTO) 74.8 % (42-75); PLATELET COUNT 553 X10'3 (140-440); RED BLOOD COUNT 3.98 X10'6 (4.70-6.10); RED CELL DISTRIBUTION WIDTH 12.9 % (11.5-14.5); WHITE BLOOD COUNT 8.9 X10'3 (4.5-11.0)
[2018-02-27 16:22] LABS: ALANINE AMINOTRANSFERASE 94 U/L (12-78); ALBUMIN 3.6 G/DL (3.4-5.0); ALKALINE PHOSPHATASE 135 IU/L (46-116); ANION GAP 14 (8-16); ASPARTATE AMINO TRANSFERASE 55 U/L (10-37); BILIRUBIN,TOTAL 0.4 MG/DL (0.1-1.0); BLOOD UREA NITROGEN 17 MG/DL (7-18); BUN/CREATININE RATIO 14.9 (5.4-32.0); CALCIUM 8.8 MG/DL (8.5-10.1); CHLORIDE 107 MMOL/L (99-107); CREATININE 1.14 MG/DL (0.60-1.10); GLUCOSE 88 MG/DL (70-104); POTASSIUM 3.5 MMOL/L (3.5-5.1); SODIUM 143 MMOL/L (135-145); TOTAL CARBON DIOXIDE 22.2 MMOL/L (24-32); TOTAL PROTEIN 7.2 G/DL (6.4-8.2); eGFR 65 ML/MIN
[2018-02-27 16:23] LABS: INR 1.2 INR; PROTHROMBIN TIME 11.6 SECONDS (9.0-12.0)
[2018-02-27 16:24] LABS: PARTIAL THROMBOPLASTIN TIME 27 SECONDS (22-32)
[2018-02-27] MEDS ORDERED: magnesium 2GM in 50ml NS 50 ML IV ONE (16:35)
[2018-02-27] MEDS ORDERED: diltiazem 5mg/ml 5ml inj. IV ONE ×2 (16:35→17:35)
[2018-02-27] MEDS ORDERED: normal saline 1000ml 1,000 ML IV ONE (16:35)
[2018-02-27] MEDS ORDERED: iohexol 350MG/ML 100ml bottle IV ONE (16:50)
[2018-02-27] MEDS ORDERED: amiodarone 150mg/dext, iso-os 100 ML IV ONE (18:25)
[2018-02-27] MEDS ORDERED: AMIO200T27 PO (18:27)
[2018-02-27 19:17] VITALS: BP 130/90
== END 2018-02-27 19:28 | disposition home or self-care (01) ==
LOC: ER 14:51
DX: I48.91 Unspecified atrial fibrillation (principal); Z98.890 Other specified postprocedural states; Z79.899 Other long term (current) drug therapy; Z79.82 Long term (current) use of aspirin
CPT/HCPCS: 36415; 71045; 71275; 80053; 84484; 85025; 85610; 85730; 93005; 96365; 96366; 96375; 96376; 99284; J0282; J3475; J7030; Q9967; J3490